=== PATIENT | male | born 1955 | race Caucasian/White ===

== ENCOUNTER 2023-01-03 09:50 | Outpatient (CLI) | payer OTHER, SELFPAY ==
--- NOTE | 2023-01-03 10:00 | ECG_ITS ---
Measurements Intervals [place] Rate: 65 P: 34 FL: 121 QRS: 37 QRSD: 97 T: 41 QT: 364 QTc: 381 Interpretive Statements SINUS RHYTHM BASELINE ARTIFACT- I, II, III, AVR, AVL, AVF NORMAL ECG NO PREVIOUS ECG AVAILABLE FOR COMPARISON Electronically Signed On 01-03-2023 10:37:25 CDT by Derian Rossi D.O.
[2023-01-03 10:55] LABS: Prothrombin Time 13.1 Seconds (11.1-14.7)
== END 2023-01-03 09:51 | disposition home or self-care (01) ==
LOC: ANHSURGERY 09:57
PROVIDERS: Visit Provider Urology
DX: Z01.818 Encounter for other preprocedural examination (principal); N20.0 Calculus of kidney; I10 Essential (primary) hypertension
CPT/HCPCS: 36415; 85610; 85730; 87086; 93005

== ENCOUNTER 2023-01-11 00:48 | Day surgery (SDC) | payer OTHER, SELFPAY ==
[2023-01-01 13:31] VITALS: BMI 28.1
--- NOTE | 2023-01-01 14:00 | PC.NURSE ---
Report to the Outpatient Waiting Room, entrance under the green pavilion located off [facility], at time _6:00AM on date __01/11/23 . Planned Procedure Time: _7:30AM . Time changes happen often and if your time is changed the preop area will call you the afternoon before. - You and your visitor will be asked to self-screen and do not enter if you have any COVID symptoms. - A mask is optional within the hospital at this time. Patients may have clear liquids (water, carbonated beverages, clear teas, apple juice) until 3 hours prior to surgery with a maximum of 20 ounces. - No food from midnight until time of surgery. Take the following medications with a SIP of water the morning of surgery: ___ALBUTEROL INHALER NEEDED DO NOT STOP ANY OF YOUR OTHER PRESCRIPTION MEDICATIONS PRIOR TO SURGERY ?EXCEPT THE FOLLOWING Medications to discontinue per physician ___HOLD ASPIRIN 7 DAYS PRE-OP PER DR PELLETIER(PER PATIENT)- LAST DOSE 01/04/23.__ HOLD ALL VITAMINS/SUPPLEMENTS 3 DAYS PRE-OP PER ANESTHESIA- LAST DOSE 01/07/23. Please no make-up, nail romansh, hairspray, perfume, deodorant, or body powder the day of surgery. No jewelry (including any body piercings) or valuables the day of surgery, leave them at home. Please take a shower or bath the night before, or the morning of, surgery with an antibacterial soap. Wear comfortable, loose fitting clothing. Children are encouraged to wear pajamas. - Jewelry must be removed prior to entering the operating room. Rings and piercings that are not removed may be cut off. - The hospital will not accept responsibility for valuables. - Please leave all valuables, including medications, at home the day of surgery. If you are going home after surgery, a licensed star route mail driver must drive you home. - NO public transportation without another adult if you receive anesthesia. - We recommend that an adult stay with you for 24 hours following discharge. - We also recommend that you do not drive, make important decision, drink alcoholic beverages, or take any drugs that were not prescribed by your health care provider for at least 24 hours after your discharge time. Follow any additional instructions given to you from your surgeon. If you or anyone in your household have experienced Covid symptoms in the past week, please notify your surgeon or the nurse liaison at the phone number below for possible testing. Telephone instructions given to __PATIENT and asked if any additional questions and then verbalized understanding. Patient advised to call surgeon office or pre surgery nurse liaison [phone] if any additional questions.
[2023-01-11] VITALS (8 sets, daily range): BP systolic 113–161; BP diastolic 65–88; PULSE 53–64; RESP 16–18; TEMP 36.5–36.6; O2SAT 94–100; BMI 26.6
--- NOTE | ~2023-01-11 | XR_ITS ---
EXAMINATION: XR abdomen/kub 1V DATE: 01/11/2023 06:09 INDICATION: Kidney stone. TECHNIQUE: A supine view of the abdomen on 2 radiographs was obtained. COMPARISON: None. FINDINGS: There are no dilated loops of bowel. There is a large volume of stool in the colon, which o bscures the kidneys. A 6 mm density overlying right kidney may be a stone. Calcifications in the pelv is are likely phleboliths. IMPRESSION: 1. 6 mm right kidney stone. 2. Calcifications in the pelvis are likely phleboliths. Distal ureteral stone cannot be excluded on e ither side. Reviewed, dictated and finalized at location E. IMPRESSION: 1. 6 mm right kidney stone. 2. Calcifications in the pelvis are likely phleboliths. Distal ureteral stone c annot be excluded on either side.
--- NOTE | 2023-01-11 06:49 | WPDANESEPPF ---
Anes - Initial Pre Proc Eval Procedure: Operation Date: 01/11/23 07:30 Proposed Procedures p Right Extracorporeal Shock Wave Lithotripsy - Nayan Marrero MD Date/Time: 01/11/23 06:49 Surgeon: Nayan Marrero MD Pre Op Diagnosis: right kidney stones Patient Data Age: 67 Gender: M Height: 1.73 m Weight: 84 kg Last Vital Signs Temp 36.6 C 01/11/23 06:14 Pulse 64 01/11/23 06:14 Resp 16 01/11/23 06:14 BP 113/67 01/11/23 06:14 Pulse Ox 97 01/11/23 06:14 O2 Del Method Room Air 01/11/23 06:14 Allergies Allergy/AdvReac Type Severity Reaction Status Date / Time ibuprofen Allergy EYE Verified 01/11/23 06:39 SWELLING, FACE NUMBNESS Home Medications Medication Instructions Recorded Confirmed Type albuterol sulfate 90 mcg/actuation 2 puff inhalation Q4-6H PRN 01/01/23 01/11/23 History aerosol inhaler Shortness Of Breath Or Wheezing aspirin 81 mg tablet,delayed 81 mg PO DAILY 01/01/23 01/01/23 History release cholecalciferol (vitamin D3) 50 50 mcg PO DAILY 01/01/23 01/01/23 History mcg (2,000 unit) tablet diltiazem HCl 240 mg 240 mg PO HS 01/01/23 01/01/23 History capsule,extended release 24 hr ezetimibe 10 mg tablet 10 mg PO HS 01/01/23 01/01/23 History finasteride 5 mg tablet 5 mg PO HS 01/01/23 01/01/23 History isosorbide mononitrate 30 mg 30 mg PO HS 01/01/23 01/01/23 History tablet,extended release 24 hr multivitamin 1 tablet PO DAILY 01/01/23 01/01/23 History omeprazole 40 mg capsule,delayed 40 mg PO HS 01/01/23 01/01/23 History release rosuvastatin 40 mg tablet 40 mg PO HS 01/01/23 01/01/23 History Patient hx anesthesia problems: none Family hx anesthesia problems: none Results Review: All pre-operative results and documents have been reviewed as part of the pre-operative evaluation. 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 Surgical History Surgical History (Updated 01/11/23 @ 06:52 by John Borja MD) H/O hernia repair History of appendectomy Hx of tonsillectomy Social History Social History Smoking packs per day: 1 Smoking cigarettes per day: 20.0 Years smoked: 58 Smoking pack-years: 58.00 Smoking status: Current every day smoker Tobacco type: cigarettes Alcohol intake: current Substance use: never Living arrangements: with family Additional living arrangements comments: Spiritual care concerns: No Anes - Eval Final PreProcedure Day of Procedure 01/11/23 06:49 Patient weight: overweight Lungs: clear to auscultation Airway: Mallampati scale class II and other (edentulous) Neurological: alert and oriented Last oral intake: >/= 8 hours ASA classification: III Emergent: no Anesthetic plan: proceed Anesthesia type and monitoring: general GIVS and standard monitoring Results Review: All pre-operative results and documents have been reviewed as part of the pre-operative evaluation. Informed Consent: The patient's anesthetic plan and its attendant risks and benefits were discussed with the patient/family/POA. Questions were solicited and answers provided to the satisfaction of the patient/family/POA.
[2023-01-11 06:57] LABS: Hemoglobin 14.1 g/dL (14.0-18.0); Mean Corpuscular HGB Conc 32.8 g/dl (32-36); Mean Corpuscular Hemoglobin 29.8 pg (26-34); Mean Corpuscular Volume 90.9 fl (80-100); Mean Platelet Volume 10.3 fl (7.4-10.4); Platelet Count Result 235 k/mm3 (150-375); Red Blood Count 4.73 M/mm3 (4.6-6.20); Red Cell Distribution Width 14.4 % (11.5-14.5); White Blood Count 17.3 K/mm3 (4.5-10.0)
[2023-01-11 07:07] LABS: Anion Gap 6 mmol/L (8-16); Blood Urea Nitrogen 17 mg/dL (9-20); Calcium 8.8 mg/dL (8.4-10.2); Carbon Dioxide 28 mmol/L (22-30); Chloride 107 mmol/L (98-107); Estimated CRCL calculation 66 ml/min; Estimated Glomerular Filt Rate > 60; Glucose 110 mg/dL (65-110); Potassium 3.7 mmol/L (3.4-5.0); Sodium 141 mmol/L (137-145)
--- NOTE | 2023-01-11 07:21 | WPDHPUPDATE1 ---
History and Physical Update Update Date/Time: 01/11/23 07:21 History and Physical has been reviewed, including an updated exam of the patient. There are NO changes in the patient's condition. Risks, benefits, and alternatives have been discussed and questions answered. Patient agrees to proceed with procedure. Proceed with right renal eswl
[2023-01-11] MEDS: ceFAZolin 2 GM/D5W 50 ML 2 GM/50 ML BAG IVPB (07:26)
--- NOTE | 2023-01-11 08:12 | W.PM.PROC2 ---
Procedure Note - Detailed Date of Procedure 01/11/23 Pre-op Diagnosis right kidney stones Post-op Diagnosis Same Procedure Performed Lithotripsy of right renal calculus 6 mm Surgeon Nayan Marrero MD Anesthesia General Description of Procedure Patient is taken to the operative suite correctly identified. Once anesthesia was obtained stone was localized in both planes. Patient received 2500 shocks. He did require gating. There appeared to be good fragmentation and termination procedure. Patient is taken recovery stable condition. He will follow up with his physician 1 week. This completes dictation on this patient. Please send a copy of this note to my office Estimated Blood Loss 0 Drains No Packing No Pathology None sent Complications No immediate complications Condition Stable Disposition PACU
[2023-01-11] MEDS: LACTATED RINGERS 1,000 ML 30 ML IV CONT (08:25)
--- NOTE | 2023-01-11 09:36 | SUR.PHASEII ---
0920 - prescriptions for Tramadol, Bactrim sent with pt. Order for KUB sent with pt also.
== END 2023-01-11 10:00 | disposition home or self-care (01) ==
PROVIDERS: Visit Provider Urology
PROC: (CPT 50590; principal; 2023-01-11 07:30)
DX: N20.0 Calculus of kidney (principal); N40.1 Benign prostatic hyperplasia with lower urinary tract symptoms; N13.8 Other obstructive and reflux uropathy; J44.9 Chronic obstructive pulmonary disease, unspecified; I10 Essential (primary) hypertension; F17.210 Nicotine dependence, cigarettes, uncomplicated; Z79.82 Long term (current) use of aspirin; Z79.51 Long term (current) use of inhaled steroids; Z85.89 Personal history of malignant neoplasm of other organs and systems; Z85.21 Personal history of malignant neoplasm of larynx
CPT/HCPCS: 50590; 36415; 74018; 80048; 85027; 85610; 85730; 87086; 93005; J0690; J1100; J2250; J2405; J2704; J3010; J7120